=== PATIENT | female | born 1970 | race Caucasian/White ===

== ENCOUNTER → 2018-06-01 10:40 | Outpatient (CLI) | payer OTHER, SELFPAY ==
--- NOTE | 2018-06-01 10:41 | DI.MG.S_ITS ---
BILATERAL DIGITAL SCREENING MAMMOGRAM 3D/2D WITH CAD: 06/01/2018 CLINICAL: Routine screening. Comparison is made to exams dated: 05/08/2017 mammogram, 03/24/2016 mammogram, 02/23/2015 mammogram, and 02/23/2015 mammogram - [facility]. There are scattered fibroglandular elements in both breasts. Current study was also evaluated with a Computer Aided Detection (CAD) system. No significant masses, calcifications, or other findings are seen in either breast. There has been no significant interval change. IMPRESSION: NEGATIVE There is no mammographic evidence of malignancy. A 1 year screening mammogram is recommended. This exam was interpreted at Station ID: [id number]. NOTE: For mammograms, a report in lay terms will be sent to the patient. Approximately 15% of breast malignancies will not be visualized mammographically. In the management of a palpable breast mass, a negative mammogram must not discourage biopsy of a clinically suspicious lesion. Electronically Signed By: Holly haro/gerardo:06/03/2018 13:55:56 copy to: Frank Heredia letter sent: Normal Exam ACR BI-RADS Category 1: Negative 3341F
== END ==
PROVIDERS: PCP Family Medicine; Visit Provider Obstetrics & Gynecology
DX: Z12.31 Encounter for screening mammogram for malignant neoplasm of breast (principal)
CPT/HCPCS: 77063; 77067

== ENCOUNTER → 2018-10-11 10:12 | Outpatient (CLI) | payer OTHER, SELFPAY ==
[2018-10-11 10:40] LABS: Add Manual Diff / Slide Review NO; Basophils Absolute Auto 100 /uL (0-100); Basophils Percent Auto 0.8 % (0-2); Eosinophils Absolute Auto 100 /uL (0-450); Eosinophils Percent Auto 1.7 % (2-4); Hematocrit 44.2 % (36-46); Hemoglobin 14.8 g/dL (12.0-16.0); Lymphocytes Absolute Auto 2300 /uL (1100-4500); Lymphocytes Percent Auto 30.9 % (25-40); Mean Corpuscular HGB Conc 33.5 % (30-36); Mean Corpuscular Hemoglobin 29.8 PG (26-34); Mean Corpuscular Volume 88.9 fL (80-100); Monocytes Absolute Auto 600 /uL (0-900); Monocytes Percent Auto 7.4 % (3-14); Neutrophils Absolute Auto 4500 /uL (1500-7000); Neutrophils Percent Auto 59.2 % (50-75); Platelet Count 360 X10^3/uL (150-400); Red Blood Cell Count 4.98 X10^6/uL (4.0-5.2); Red Cell Distribution Width 13.3 % (11.6-14.8); White Blood Cell Count 7.6 X10^3/uL (4.5-11.0)
[2018-10-11 11:26] LABS: Alanine Aminotransferase 25 IU/L (9-52); Albumin 4.6 g/dL (3.5-5.0); Albumin Globulin Ratio 1.4 (1.0-2.8); Alkaline Phosphatase 60 U/L (38-126); Aspartate Aminotransferase 24 IU/L (14-36); BUN Creatinine Ratio 18.6 (6-22); Bilirubin Total 1.2 mg/dL (0.2-1.3); Blood Urea Nitrogen 13 mg/dL (7-17); Carbon Dioxide 26 mmol/L (22-32); Chloride 101 mmol/L (98-107); Cholesterol 184 mg/dL (140-199); Estimated Glomerular Filt Rate > 60.0 mL/min (>60); Globulin 3.3 g/dL (1.7-4.1); Glucose 95 mg/dL (70-100); HDL Cholesterol 58 mg/dL (40-60); HEMOLYSIS < 15 (0-50); LDL Cholesterol Calculated 111 mg/dL (<100); Potassium 4.5 mmol/L (3.4-5.1); Sodium 137 mmol/L (137-145); Total Protein 7.9 g/dL (6.3-8.2); Triglycerides 76 mg/dL (35-150)
== END ==
PROVIDERS: PCP Family Medicine; Visit Provider Family Medicine
DX: Z00.00 Encounter for general adult medical examination without abnormal findings (principal); Z13.6 Encounter for screening for cardiovascular disorders
CPT/HCPCS: 36415; 80053; 80061; 84443; 85025

== ENCOUNTER → 2019-07-31 11:12 | Outpatient (CLI) | payer OTHER, SELFPAY ==
--- NOTE | 2019-07-31 11:13 | DI.MG.S_ITS ---
BILATERAL DIGITAL SCREENING MAMMOGRAM 3D/2D WITH CAD: 07/31/2019 CLINICAL: Routine screening. Comparison is made to exams dated: 06/01/2018 mammogram, 05/16/2017 mammogram, 05/08/2017 mammogram, and 03/24/2016 mammogram - [facility]. There are scattered fibroglandular elements in both breasts. Current study was also evaluated with a Computer Aided Detection (CAD) system. No significant masses, calcifications, or other findings are seen in either breast. There has been no significant interval change. IMPRESSION: NEGATIVE There is no mammographic evidence of malignancy. A 1 year screening mammogram is recommended. This exam was interpreted at Station ID: [id number]. NOTE: For mammograms, a report in lay terms will be sent to the patient. Approximately 15% of breast malignancies will not be visualized mammographically. In the management of a palpable breast mass, a negative mammogram must not discourage biopsy of a clinically suspicious lesion. Electronically Signed By: Holly haro/gerardo:08/01/2019 10:25:44 letter sent: Normal Exam ACR BI-RADS Category 1: Negative 3341F
== END ==
PROVIDERS: PCP Family Medicine; Visit Provider Obstetrics & Gynecology
DX: Z12.31 Encounter for screening mammogram for malignant neoplasm of breast (principal)
CPT/HCPCS: 77063; 77067

== ENCOUNTER → 2020-03-06 13:48 | Outpatient (CLI) | payer OTHER, SELFPAY ==
[2020-03-09 06:51] LABS: COVID19 Sendout Not Detected (Not Detect)
== END ==
PROVIDERS: Family Provider Obstetrics & Gynecology; PCP Family Medicine; Visit Provider Physician Assistant
DX: Z01.812 Encounter for preprocedural laboratory examination (principal)
CPT/HCPCS: 87635

== ENCOUNTER 2020-03-09 11:25 | Day surgery (SDC) | payer OTHER, SELFPAY ==
[2020-03-09] VITALS (7 sets, daily range): BP systolic 103–122; BP diastolic 65–82; PULSE 66–80; RESP 10–22; TEMP 36.6–36.8; O2SAT 94–99; BMI 32.9
[2020-03-09] MEDS: SODIUM CHLORIDE 0.9% 1,000 ML 200 ML IV (11:36)
--- NOTE | 2020-03-09 13:00 | PM.HP.1 ---
History of Present Illness History of Present Illness Date Patient Seen: 03/09/20 Time Patient Seen: 13:00 Chief complaint: SCREENING COLONOSCOPY Narrative: This is a 49-year-old woman who is here for her 1st screening colonoscopy. She has family history of colon polyps, but not colon cancers. She denies any melena, hematochezia, unexplained weight loss, or unexplained abdominal pain. She believes that she does have some hemorrhoids, and asked if these could be banded during her procedure. ROS: Thirteen system review is otherwise negative other than as mentioned below and in HPI. PE: GENERAL: Well groomed and cooperative. Appears stated age. Answers questions promptly and appropriately. Vital signs noted. HENT: Normocephalic, atraumatic. Hearing intact. EYES: Conjunctiva pink, sclera white, no periorbital swelling. CARDIOVASCULAR: Regular rate. No pedal edema. RESPIRATORY: Non-tachypneic, breathing comfortably on room air. GASTROINTESTINAL: Abdomen soft and non-distended GENITALURINARY: No flank tenderness. MUSCULOSKELETAL: Equal tone and mass bilaterally. SKIN: Warm, dry, soft, appropriate color for ethnicity. No other lesions, rashes, or wounds. NEURO: Alert and Oriented X 3. No gross sensory deficits, or cognitive issues. PSYCH: Appropriate affect and mood. Patient History Medical History Chicken pox (Resolved) Measles (Resolved) Ovarian cyst (Resolved 2000) Surgical History Anesthesia complication (Resolved) History of oophorectomy, unilateral (Resolved ~2007) History of right salpingo-oophorectomy (Resolved 11/25/10) History of third molar tooth extraction (Resolved) Status post delivery (Resolved 03/1996) Status post delivery (Resolved 06/2001) Status post dilation and curettage (Resolved 11/25/10) Status post endometrial ablation (Resolved 2009) Status post endometrial ablation (Resolved 11/25/10) Family & Social History Family History Brother Age: 47 Mental health problem Depression Father Liver cancer Alcoholism Grandfather Heart problem Grandmother No problems noted. Mother No problems noted. Grandfather No problems noted. Grandmother Leukemia Sister No problems noted. Social History: household members spouse Tobacco & Substance use: Smoking Status Former smoker alcohol intake current Substance Use Type does not use Meds Home Medications and Allergies Home Medications Medication Instructions Recorded Confirmed Type hydroxyzine HCl 25 mg tablet 25 mg PO BEDTIME PRN #30 tab 10/28/18 05/26/19 Rx estradiol 10 mcg vaginal tablet 10 mcg VAG .COMPLEX #24 tab 05/28/19 Rx nitrofurantoin 100 mg PO BID #10 cap 11/10/19 Rx monohydrate/macrocrystals 100 mg capsule celecoxib 200 mg capsule 200 mg PO DAILY PRN #30 cap 03/01/20 Rx spironolactone 50 mg PO DAILY 03/09/20 03/09/20 History Allergies Allergy/AdvReac Type Severity Reaction Status Date / Time No Known Drug Allergies Allergy Verified 03/06/20 13:47 Exam Vital Signs (past 8 hours): - 03/09/20 11:48 Temperature 98.2 F Pulse Rate 80 Respiratory Rate 22 Blood Pressure 122/82 Pulse Oximetry 99 Oxygen Delivery Method Room Air Assessment & Plan Assessment and plan (1) Family history of colonic polyps: Status: Acute (2) Hemorrhoids: Status: Acute Assessment & Plan narrative: Risks and benefits of screening colonoscopy and possible polypectomy were discussed with the patient including risk of bleeding, perforation, need for additional procedures, risks of anesthesia. The patient desires to proceed with the colonoscopy procedure. Risk of hemorrhoid banding including bleeding, infection, recurrence of hemorrhoids, pain were discussed. Patient desires to proceed COVID-19 COVID-19 status: Negative Result date/Date tested (Pos, Neg/Pending): 03/06/20 Time Spent With Patient Time with patient: 15-24 minutes Quality VTE Deep Vein Thrombosis/Pulmonary Embolism Present on Admission: No
--- NOTE | 2020-03-09 13:04 | PM.OP.ENDO ---
Operative Date/Time/Diagnoses Date of procedure: 03/09/20 Time of procedure: 13:04 Pre-op diagnosis: family history of colon polyps, pt has never had a colonoscopy Post-op diagnosis: other (Normal colon, small internal hemorrhoids without stigmata of bleeding, external hemorrhoid remnant tags) Procedure & Clinicians Study performed: Colonoscopy Procedural sedation by the endoscopist Indications: 49 yo woman with family history of colon polyps; pt has never had a screening colonoscopy Surgeon: Nickie Butler Procedure Notes SCOAP/Timeout: Performed Procedure in detail: The patient was brought to the room and placed in left lateral decubitus position with all bony prominences padded. A time-out was performed and then the patient was given procedural sedation starting with 2 mg of Versed and [100] mcg of fentanyl. Total of 4 mg of Versed and 150 micro g of fentanyl were given for the entire procedure. Vitals were monitored throughout the procedure and remained stable. Once adequately sedated, the procedure was begun. A rectal exam was performed revealing moderate-sized external hemorrhoid remnant tags without evidence of swelling, or thrombosis. The colonoscope was then introduced to the rectum and advanced to the cecum in the usual fashion. []The cecum was identified by the appendiceal orifice, the mucosal tri-fold, and the ileocecal valve. The scope was then retracted while rotating side to side and examining each mucosal fold. [] At the conclusion of the procedure retroflexion was performed and [small grade 1-2 internal hemorrhoids without stigmata of bleeding were seen. These were not appropriate for banding, and so banding was not done.]. The scope was then withdrawn from the rectum the procedure was concluded. The patient tolerated the procedure well and was transferred to the PACU in stable condition. Scope withdrawal time: 7 Sedation minutes: 19 Findings: internal hemorrhoids (Small, no stigmata of bleeding, not appropriate for banding) and other findings (Moderate external hemorrhoid remnant tags) Specimen(s): none sent Complications: none Impression: Normal colon, small internal hemorrhoids not appropriate for banding, with no stigmata of bleeding. Moderate external hemorrhoid remnant tags. Post-procedure Recommendations: Colonscopy in 10 years (Or sooner if concerning symptoms arise) and Other recommendation (Follow-up as needed if surgical excision of external hemorrhoid this desire) Follow up: as needed Disposition: PACU
[2020-03-09] MEDS: MIDAZOLAM 5 MG/5 ML VIAL IV (13:12)
[2020-03-09] MEDS: fentaNYL 250 MCG/5 ML INJ IV (13:12)
--- NOTE | 2020-03-09 14:11 | SUR.PHASEII ---
Pt up and ambulating gait steady, getting dressed now. All dc instructions given and pt verbalizes understanding.
== END 2020-03-09 14:17 | disposition home or self-care (01) ==
PROVIDERS: Family Provider Obstetrics & Gynecology; PCP Family Medicine; Referring Provider Surgery; Visit Provider Surgery
PROC: 0DJD8ZZ Inspection of Lower Intestinal Tract, Via Natural or Artificial Opening Endoscopic (ICD-10-PCS; CPT 45378; principal; 2020-03-09 11:30)
DX: Z12.11 Encounter for screening for malignant neoplasm of colon (principal); K64.4 Residual hemorrhoidal skin tags; K64.0 First degree hemorrhoids
CPT/HCPCS: 45378; 99152; J2250; J3010

== ENCOUNTER → 2020-08-02 12:15 | Outpatient (CLI) | payer OTHER, SELFPAY ==
--- NOTE | 2020-08-02 12:16 | DI.MG.S_ITS ---
BILATERAL DIGITAL SCREENING MAMMOGRAM 3D/2D WITH CAD: 08/02/2020 CLINICAL: Routine screening. Comparison is made to exams dated: 07/31/2019 mammogram, 06/01/2018 mammogram, and 05/16/2017 mammogram - [facility]. There are scattered fibroglandular elements in both breasts. Current study was also evaluated with a Computer Aided Detection (CAD) system. No significant masses, calcifications, or other findings are seen in either breast. There has been no significant interval change. IMPRESSION: NEGATIVE There is no mammographic evidence of malignancy. A 1 year screening mammogram is recommended. This exam was interpreted at Station ID: [id number]. NOTE: For mammograms, a report in lay terms will be sent to the patient. Approximately 15% of breast malignancies will not be visualized mammographically. In the management of a palpable breast mass, a negative mammogram must not discourage biopsy of a clinically suspicious lesion. Electronically Signed By: Nic davis/gerardo:08/02/2020 13:10:39 copy to: Isatu Yates letter sent: Normal Exam ACR BI-RADS Category 1: Negative 3341F
== END ==
PROVIDERS: Family Provider Obstetrics & Gynecology; PCP Family Medicine; Referring Provider Family Medicine; Visit Provider Family Medicine
DX: Z12.31 Encounter for screening mammogram for malignant neoplasm of breast (principal)
CPT/HCPCS: 77063; 77067

== ENCOUNTER → 2021-12-07 15:05 | Outpatient (CLI) | payer OTHER, SELFPAY ==
--- NOTE | 2021-12-07 15:06 | DI.MG.S_ITS ---
BILATERAL DIGITAL SCREENING MAMMOGRAM 3D/2D WITH CAD: 12/07/2021 CLINICAL: Routine screening. Comparison is made to exams dated: 08/02/2020 mammogram, 07/31/2019 mammogram, and 06/01/2018 mammogram - [facility]. There are scattered fibroglandular elements in both breasts. Current study was also evaluated with a Computer Aided Detection (CAD) system. No significant masses, calcifications, or other findings are seen in either breast. There has been no significant interval change. IMPRESSION: NEGATIVE There is no mammographic evidence of malignancy. A 1 year screening mammogram is recommended. This exam was interpreted at Station ID: [id number]. NOTE: For mammograms, a report in lay terms will be sent to the patient. Approximately 15% of breast malignancies will not be visualized mammographically. In the management of a palpable breast mass, a negative mammogram must not discourage biopsy of a clinically suspicious lesion. Electronically Signed By: Nic Jolly M.D. at/gerardo:12/08/2021 08:59:33 copy to: Isatu Yates letter sent: Normal Exam ACR BI-RADS Category 1: Negative 3341F
== END ==
PROVIDERS: Family Provider Obstetrics & Gynecology; PCP Family Medicine; Referring Provider Obstetrics & Gynecology; Visit Provider Obstetrics & Gynecology
DX: Z12.31 Encounter for screening mammogram for malignant neoplasm of breast (principal)
CPT/HCPCS: 77063; 77067